=== PATIENT | female | born 1985 | race Caucasian/White ===

== ENCOUNTER 2021-04-09 10:43 | Emergency (ER) | payer OTHER ==
[2021-04-09] MEDS ORDERED: Zofran 4 MG/2 ML VIAL IV ONE (10:57)
[2021-04-09] MEDS ORDERED: TORAdol 30 mg Injection IV ONE (10:57)
[2021-04-09] MEDS ORDERED: Hydromorphone 1 mg/ml Injection IV ONE (10:57)
[2021-04-09] MEDS ORDERED: Sodium Chloride 0.9% 1000 ML 1,000 ML IV STA (10:57)
[2021-04-09] MEDS ORDERED: Zofran 4 MG/2 ML VIAL ONE (11:02)
[2021-04-09] MEDS ORDERED: Hydromorphone 1 mg/ml Injection ONE (11:02)
[2021-04-09] MEDS ORDERED: TORAdol 30 mg Injection ONE (11:02)
[2021-04-09] MEDS ORDERED: Sodium Chloride 0.9% 1000 ML 1,000 ML ONE (11:03)
[2021-04-09 11:16] LABS: Absolute Neutrophil Ct (ANC) 1.04 (1.4-6.9); BASOPHIL % 0.9 % (0.0-0.4); Basophil (Absolute #) 0.02 (0-0.4); Eosinophil (Absolute #) 0.31 (0-0.5); Hematocrit 40.7 % (35-47); Hemoglobin 12.8 gm/dl (12.0-16.0); Lymphocyte (Absolute #) 0.82 (1.0-4.6); Lymphocytes % 36.9 % (24.0-44.0); Mean Cell Volume 96.2 fl (78-100); Mean Corpuscular Hemoglobin 30.3 pg (26-32); Mean Corpuscular Hgb Concent. 31.4 g/dl (32-36); Mean Platelet Volume 9.7 fl (7.5-11.0); Monocyte (Absolute #) 0.03 (0.0-1.3); Monocytes % 1.4 % (0.0-12.0); Neutrophil % 46.8 % (36.0-66.0); Platelet Count 180 K/mm3 (150-450); Red Blood Count 4.23 M/mm3 (4.1-5.4); Red Cell Distribution Width 13.1 % (11.5-14.0); White Blood Count 2.2 K/mm3 (4.0-10.5)
[2021-04-09 11:17] LABS: ALBUMIN 4.4 g/dL (3.5-5.0); ALKALINE PHOSPHATASE 49 U/L (38-126); AMYLASE 79 U/L (30-110); ANION GAP 12.5 MEQ/L (5-15); BLOOD UREA NITROGEN 10 mg/dL (7-17); CHLORIDE 105 mmol/L (98-107); Calcium 9.2 mg/dL (8.4-10.2); Carbon Dioxide 25 mmol/L (22-30); Creatinine 1 0.72 mg/dL (0.52-1.04); EST GLOMERULAR FILTRATION RATE > 60.0 ML/MIN; Glucose 123 mg/dL (74-106); LIPASE 61 U/L (23-300); Potassium 4.5 mmol/L (3.5-5.1); SGOT/AST 22 U/L (14-36); SGPT/ALT 14 U/L (0-35); SODIUM 137 mmol/L (137-145); Total Protein 7.3 g/dL (6.3-8.2)
--- NOTE | 2021-04-09 11:33 | ERPHSYRPT ---
- History of Present Illness Time Seen by Provider: 04/09/21 10:55 Historian: patient, family Exam Limitations: no limitations Patient Subjective Stated Complaint: PT states "My left abdomen hurts so bad. It woke me up." Triage Nursing Assessment: Pt presented alert and oriented X 3, skin pwd pt unable to sit still. Pt moaning. Pt holding her left lower abdomen. Physician History: Patient is a 35-year-old female who presents with the complaint of left flank and left lower quadrant pain. The pain awoke her from sleep this morning and has gotten progressively worse. She has no history of renal stones denies any fever chills sweats etc. she does report nausea and dry heaving in the ER. Timing/Duration: today Activities at Onset: sleep Quality: stabbing, throbbing Abdominal Pain Onset Location: flank Pain Radiation: LLQ Severity of Pain-Max: severe Severity of Pain-Current: severe Modifying Factors: Improves With: vomiting Associated Symptoms: nausea, vomiting Previous symptoms: no prior history Allergies/Adverse Reactions: No Known Drug Allergies Allergy (Verified 01/30/21 07:42) Hx Tetanus, Diphtheria Vaccination/Date Given: Yes Hx Influenza Vaccination/Date Given: No Hx Pneumococcal Vaccination/Date Given: No Immunizations Up to Date: Yes Travel Risk - International Travel Have you traveled outside of the country in past 3 weeks: No - Coronavirus Screening Are you exhibiting any of the following symptoms?: No Close contact with a COVID-19 positive Pt in past 14-21 Days: No - Vaccine Status Have you recieved a Covid-19 vaccination: No - Review of Systems Constitutional: No Fever, No Chills Eyes: No Symptoms Ears, Nose, & Throat: No Symptoms Respiratory: No Cough, No Dyspnea Cardiac: No Chest Pain, No Edema, No Syncope Abdominal/Gastrointestinal: Abdominal Pain, Nausea, Vomiting, No Diarrhea Genitourinary Symptoms: Flank Pain (Left), No Dysuria Musculoskeletal: No Back Pain, No Neck Pain Skin: No Rash Neurological: No Dizziness, No Focal Weakness, No Sensory Changes Psychological: No Symptoms Endocrine: No Symptoms All Other Systems: Reviewed and Negative - Past Medical History Pertinent Past Medical History: Yes Neurological History: No Pertinent History ENT History: No Pertinent History Cardiac History: No Pertinent History Respiratory History: No Pertinent History Endocrine Medical History: No Pertinent History Musculoskeletal History: No Pertinent History GI Medical History: No Pertinent History History: No Pertinent History Psycho-Social History: No Pertinent History Female Reproductive Disorders: No Pertinent History - Past Surgical History Past Surgical History: Yes Neuro Surgical History: No Pertinent History Cardiac: No Pertinent History Respiratory: No Pertinent History Gastrointestinal: No Pertinent History Genitourinary: No Pertinent History Musculoskeletal: No Pertinent History Female Surgical History: Other Other Surgical History: tubal - Social History Smoking Status: Current every day smoker How long have you smoked: 18 years Exposure to second hand smoke: Yes Drug Use: none Patient Lives Alone: No - Female History Hx Last Menstrual Period: tubal Hx Now: No - Nursing Vital Signs Nursing Vital Signs: Initial Vital Signs Temperature 97.8 F 04/09/21 10:51 Pulse Rate 69 04/09/21 10:51 Respiratory Rate 22 04/09/21 10:51 Blood Pressure 76/55 04/09/21 10:51 O2 Sat by Pulse Oximetry 99 04/09/21 10:51 Pain Scale Pain Intensity 7 - Physical Exam General Appearance: severe distress, alert Eye Exam: PERRL/EOMI, eyes nml inspection Ears, Nose, Throat Exam: normal ENT inspection, pharynx normal, moist mucous membranes Neck Exam: normal inspection, non-tender, supple, full range of motion Respiratory Exam: normal breath sounds, lungs clear, No respiratory distress Cardiovascular Exam: regular rate/rhythm, normal heart sounds Gastrointestinal/Abdomen Exam: soft, No tenderness, No mass Back Exam: normal inspection, normal range of motion, No CVA tenderness, No vertebral tenderness Extremity Exam: normal inspection, normal range of motion, pelvis stable Neurologic Exam: alert, oriented x 3, cooperative, normal mood/affect, nml cerebellar function, sensation nml, No motor deficits Skin Exam: normal color, warm, dry SpO2: 99 - Course Nursing assessment & vital signs reviewed: Yes - CT Exams Abdomen/Pelvis CT Interpretation: Tele-radiologist Report, Other (CT scan shows a 1 mm left ureteral stone at the UPJ) Ordered Tests: Active Orders 24 hr Category Date Time Status IV Insertion STAT Care 04/09/21 10:57 Active ABDOMEN AND PELVIS W/0 CONTRAS [CT] Stat Exams 04/09/21 10:58 Completed AMYLASE Stat Lab 04/09/21 11:00 Completed CBC W DIFF Stat Lab 04/09/21 11:00 Completed CMP Stat Lab 04/09/21 11:00 Completed LIPASE Stat Lab 04/09/21 11:00 Completed Lactic Acid Stat Lab 04/09/21 10:57 Completed UA W/RFX UR CULTURE Stat Lab 04/09/21 10:58 Ordered Medication Summary Discontinued Medications Generic Name Dose Route Start Last Admin Trade Name Awilda PRN Reason Stop Dose Admin Fentanyl Citrate 75 mcg 04/09/21 11:49 Sublimaze 100 Mcg/2 Ml IV 04/09/21 11:50 STAT ONE Fentanyl Citrate Confirm 04/09/21 11:55 Sublimaze 100 Mcg/2 Ml Administered 04/09/21 11:56 Dose 100 mcg .ROUTE .STK-MED ONE Hydromorphone HCl 1 mg 04/09/21 10:57 04/09/21 11:08 Hydromorphone 1 Mg/Ml Injection IV 04/09/21 10:58 1 mg STAT ONE Administration Hydromorphone HCl Confirm 04/09/21 11:02 Hydromorphone 1 Mg/Ml Injection Administered 04/09/21 11:03 Dose 1 mg .ROUTE .STK-MED ONE Sodium Chloride 1,000 mls @ 999 mls/hr 04/09/21 10:57 04/09/21 11:09 Sodium Chloride 0.9% 1000 Ml IV 04/09/21 11:57 999 mls/hr .Q1H1M STA Administration Sodium Chloride Confirm 04/09/21 11:03 Sodium Chloride 0.9% 1000 Ml Administered 04/09/21 11:04 Dose 1,000 mls @ ud .ROUTE .STK-MED ONE Ketorolac Tromethamine 30 mg 04/09/21 10:57 04/09/21 11:08 Toradol 30 Mg Injection IV 04/09/21 10:58 30 mg STAT ONE Administration Ketorolac Tromethamine Confirm 04/09/21 11:02 Toradol 30 Mg Injection Administered 04/09/21 11:03 Dose 30 mg .ROUTE .STK-MED ONE Ondansetron HCl 4 mg 04/09/21 10:57 04/09/21 11:09 Zofran 4 Mg/2 Ml Vial IV 04/09/21 10:58 4 mg STAT ONE Administration Ondansetron HCl Confirm 04/09/21 11:02 Zofran 4 Mg/2 Ml Vial Administered 04/09/21 11:03 Dose 4 mg .ROUTE .STK-MED ONE Lab/Rad Data: Laboratory Result Diagrams 04/09/21 11:00 04/09/21 11:00 Laboratory Results 04/09/21 04/09/21 04/09/21 Range/Units 11:00 11:00 10:57 WBC 2.2 L (4.0-10.5) K/mm3 RBC 4.23 (4.1-5.4) M/mm3 Hgb 12.8 (12.0-16.0) gm/dl Hct 40.7 (35-47) % MCV 96.2 (78-100) fl MCH 30.3 (26-32) pg MCHC 31.4 L (32-36) g/dl RDW 13.1 (11.5-14.0) % Plt Count 180 (150-450) K/mm3 MPV 9.7 (7.5-11.0) fl Gran % 46.8 (36.0-66.0) % Eos # (Auto) 0.31 (0-0.5) Absolute Lymphs (auto) 0.82 L (1.0-4.6) Absolute Monos (auto) 0.03 (0.0-1.3) Lymphocytes % 36.9 (24.0-44.0) % Monocytes % 1.4 (0.0-12.0) % Eosinophils % 14.0 H (0.00-5.0) % Basophils % 0.9 (0.0-0.4) % Absolute Granulocytes 1.04 L (1.4-6.9) Basophils # 0.02 (0-0.4) Sodium 137 (137-145) mmol/L Potassium 4.5 (3.5-5.1) mmol/L Chloride 105 (98-107) mmol/L Carbon Dioxide 25 (22-30) mmol/L Anion Gap 12.5 (5-15) MEQ/L BUN 10 (7-17) mg/dL Creatinine 0.72 (0.52-1.04) mg/dL Estimated GFR > 60.0 ML/MIN Glucose 123 H (74-106) mg/dL Lactic Acid 1.6 (0.4-2.0) Calcium 9.2 (8.4-10.2) mg/dL Total Bilirubin 0.30 (0.2-1.3) mg/dL AST 22 (14-36) U/L ALT 14 (0-35) U/L Alkaline Phosphatase 49 (38-126) U/L Serum Total Protein 7.3 (6.3-8.2) g/dL Albumin 4.4 (3.5-5.0) g/dL Amylase 79 (30-110) U/L Lipase 61 (23-300) U/L - Progress Progress: improved, pain not gone completely - Departure Departure Disposition: Home Clinical Impression: Left ureteral stone Condition: Stable Critical Care Time: No Referrals: JAKUB SINGH [Primary Care Provider] - Instructions: Kidney Stones (DC) Prescriptions: Oxycodone HCl/Acetaminophen [Percocet 5-325 mg Tablet] 1 each PO Q6H PRN PRN 3 Days #12 tablet MDD 4 PRN Reason: Pain Tamsulosin HCl 0.4 mg [Flomax 0.4 MG] 0.4 mg PO DAILY 5 Days #5 cap Ondansetron HCl [Zofran] 4 mg PO TID PRN #10 tablet PRN Reason: Nausea/Vomiting
--- NOTE | 2021-04-09 11:37 | XRAY ---
Indication: Left flank pain. Multiple contiguous images obtained through the abdomen and pelvis without contrast. Comparison: None Lung bases are clear. Heart is not enlarged. Noncontrasted stomach and bowel loops appear nonobstructed. There is moderate diffuse scattered colonic fecal debris throughout. No free fluid/air. Left kidney demonstrates a 1 cm UPJ calculus with mild hydronephrosis. 2 additional nonobstructing left renal punctate calculi. Incidental tubal ligation clips. Remaining liver, gallbladder, pancreas, spleen, adrenal glands, right kidney, right ureter, urinary bladder, uterus, and aorta are unremarkable for noncontrast exam. Osseous structures intact. Impression: 1. 1 cm left UPJ calculus producing partial obstructive uropathy. Additional left renal micro-calculi. 2. Incidental moderate diffuse fecal stasis.
[2021-04-09] MEDS ORDERED: SUBLIMAZE 100 MCG/2 ML IV ONE (11:49)
[2021-04-09] MEDS ORDERED: SUBLIMAZE 100 MCG/2 ML ONE (11:55)
[2021-04-09 13:13] LABS: Appearance CLOUDY (CLEAR); Bacteria RARE /HPF (NEGATIVE); Bilirubin NEGATIVE (NEGATIVE); Blood LARGE Ery/ul (0-5); Epithelial Cells RARE /HPF (FEW); Glucose NEGATIVE (NEGATIVE); Ketones NEGATIVE (NEGATIVE); Leukocyte Esterase MODERATE (NEGATIVE); Mucus SLIGHT /HPF (NEGATIVE); Nitrite POSITIVE (NEGATIVE); Protein,Urine Dip 30 (Negative); RBC 51-100 /HPF (0-2); Specific Gravity 1.017 (1.005-1.025); Urobilinogen NEGATIVE mg/dL (0-1); WBC 26-50 /HPF (0-5)
[2021-04-09 13:14] VITALS: BP 107/59; PULSE 70; O2SAT 98
== END 2021-04-09 13:15 | disposition home or self-care (01) ==
LOC: ED 10:43
DX: N20.1 Calculus of ureter (principal)
CPT/HCPCS: 36000; 36415; 74176; 80053; 81001; 82150; 83605; 83690; 85025; 87077; 87086; 87186; 96360; 96374; 96375; 99284; J1170; J1885; J2405; J3010

== ENCOUNTER 2024-11-20 15:55 | Emergency (ER) | payer OTHER ==
[2024-11-20 16:11] VITALS: TEMP 97.1; O2SAT 100
--- NOTE | 2024-11-20 16:38 | ERPHSYRPT ---
- History of Present Illness Time Seen by Provider: 11/20/24 16:01 Historian: patient, family Exam Limitations: no limitations Patient Subjective Stated Complaint: pt c/o of medial sternum chest pain that began appox 30-45 minutes ago and spouse reports pt turning orange Triage Nursing Assessment: Pt brought to the ER by her , bradycardic, rates medial chest pain as 7/10, pulses weak, skin orange/yellow, warm and dry, pt reports skin turning this color before when she had a blood infection, hard to catch a breath, reports being on nitrofurantoin for a UTI at this time, weak and lethargic Physician History: 39 years old female with history of anxiety/depression/vaping presented in the ER with sudden onset epigastric/lower substernal chest pain sudden onset almost an hour ago after eating some Cheetos. Patient reports moderate to severe sharp pain, nonradiating, mild nausea but no vomiting. Denies any palpitations or shortness of breath associated with it. No fever or chills reported. No history of coronary artery disease, pancreatitis or biliary colic. Allergies/Adverse Reactions: No Known Drug Allergies Allergy (Verified 11/20/24 16:14) Home Medications: Fluoxetine HCl [Prozac] 40 mg PO DAILY 11/20/24 [History] Methenamine Hippurate 1 gm PO DAILY 11/20/24 [History] Nitrofurantoin Macrocrystal [Nitrofurantoin] 50 mg PO DAILY 11/20/24 [History] buPROPion HCL [Bupropion Xl] 300 mg PO DAILY 11/20/24 [History] risperiDONE [Risperdal] 0.5 mg PO BID 11/20/24 [History] Hx Tetanus, Diphtheria Vaccination/Date Given: Yes Hx Influenza Vaccination/Date Given: No Hx Pneumococcal Vaccination/Date Given: No Travel Risk - International Travel Have you traveled outside of the country in past 3 weeks: No - Emerging Infectious Disease Are you exhibiting symptoms associated with any current EIDs: No - Review of Systems Constitutional: No Symptoms Ears, Nose, & Throat: No Symptoms Respiratory: No Symptoms Cardiac: Chest Pain Abdominal/Gastrointestinal: Abdominal Pain, Nausea Genitourinary Symptoms: No Symptoms Musculoskeletal: No Symptoms Skin: No Symptoms Neurological: No Symptoms Endocrine: No Symptoms Hematologic/Lymphatic: No Symptoms Immunological/Allergic: No Symptoms - Past Medical History Pertinent Past Medical History: Yes Neurological History: No Pertinent History ENT History: No Pertinent History Cardiac History: No Pertinent History Respiratory History: No Pertinent History Endocrine Medical History: No Pertinent History Musculoskeletal History: No Pertinent History GI Medical History: No Pertinent History History: No Pertinent History Psycho-Social History: No Pertinent History Female Reproductive Disorders: No Pertinent History - Past Surgical History Past Surgical History: Yes Neuro Surgical History: No Pertinent History Cardiac: No Pertinent History Respiratory: No Pertinent History Gastrointestinal: No Pertinent History Genitourinary: No Pertinent History Musculoskeletal: No Pertinent History Female Surgical History: Other Other Surgical History: tubal - Female History Hx Now: No (ablation) - Social History Smoking Status: Current every day smoker How long have you smoked: vape Exposure to second hand smoke: Yes Drug Use: marijuana - Social Determinants of Health Will the patient participate in the screening: Yes Do you worry about a steady place to live?: No Do you have any problems with any of the following?: No known problems In the past 12 months,have you had to go without utilities?: No Transportation Issues: No Has anyone in your support network made you feel unsafe?: No Have you or anyone in your house had to go w/o enough food: No - Nursing Vital Signs Nursing Vital Signs: Initial Vital Signs Temperature 97.1 F 11/20/24 16:00 Pulse Rate 47 L 11/20/24 16:00 Respiratory Rate 19 11/20/24 16:00 Blood Pressure 111/49 11/20/24 16:00 O2 Sat by Pulse Oximetry 100 11/20/24 16:00 Pain Scale Pain Intensity 3 - Physical Exam General Appearance: no apparent distress, alert Eye Exam: PERRL/EOMI Ears, Nose, Throat Exam: normal ENT inspection Neck Exam: normal inspection, non-tender, supple, full range of motion Respiratory Exam: normal breath sounds, lungs clear Cardiovascular Exam: regular rate/rhythm, normal heart sounds Gastrointestinal/Abdomen Exam: soft, normal bowel sounds, tenderness (Epigastrium) Back Exam: normal inspection, normal range of motion Extremity Exam: normal inspection, normal range of motion Neurologic Exam: alert, oriented x 3, cooperative Skin Exam: normal color SpO2 Interpretation: normal SpO2: 100 O2 Delivery: Room Air - Course EKG Interpreted by Me: RATE (62), Sinus Rhythm, NORMAL AXIS, NORMAL INTERVALS, NORMAL QRS Ordered Tests: Active Orders 24 hr Category Date Time Status EKG-ER Only STAT Care 11/20/24 16:32 Active IV Insertion STAT Care 11/20/24 16:32 Active NPO (ED) STAT Care 11/20/24 16:32 Active CHEST 1 VIEW (PORTABLE) Stat Exams 11/20/24 16:32 Taken CBC W DIFF Stat Lab 11/20/24 16:40 Completed CMP Stat Lab 11/20/24 16:40 Completed CULTURE,URINE Stat Lab 11/20/24 18:27 Received HCG QUALITATIVE, SERUM Stat Lab 11/20/24 16:40 Completed LIPASE Stat Lab 11/20/24 16:40 Completed TROPONIN Q4H Lab 11/20/24 16:40 Completed TROPONIN Q4H Lab 11/20/24 19:00 Completed TROPONIN Q4H Lab 11/21/24 00:45 Ordered UA W/RFX UR CULTURE Stat Lab 11/20/24 18:27 Completed Medication Summary Discontinued Medications Generic Name Dose Route Start Last Admin Trade Name Freq PRN Reason Stop Dose Admin Cephalexin HCl 500 mg 11/20/24 19:43 11/20/24 19:47 Cephalexin Mh500 Mg Capsule PO 11/20/24 19:44 500 mg STAT ONE Administration Cephalexin HCl Confirm 11/20/24 19:46 Cephalexin Mh500 Mg Capsule Administered 11/20/24 19:47 Dose 500 mg .ROUTE .STK-MED ONE Fentanyl Citrate 50 mcg 11/20/24 16:32 11/20/24 16:55 Fentanyl Citrate 100 Mcg/2 Ml* Vial IV 11/20/24 16:33 50 mcg STAT ONE Administration Fentanyl Citrate Confirm 11/20/24 16:51 Fentanyl Citrate 100 Mcg/2 Ml* Vial Administered 11/20/24 16:52 Dose 100 mcg .ROUTE .STK-MED ONE Sodium Chloride 1,000 mls @ 999 mls/hr 11/20/24 16:32 11/20/24 18:41 Sodium Chloride 0.9% 1000 Ml IV 11/20/24 17:32 Infused .Q1H1M STA Infusion Sodium Chloride Confirm 11/20/24 16:51 Sodium Chloride 0.9% 1000 Ml Administered 11/20/24 16:52 Dose 1,000 mls @ ud .ROUTE .STK-MED ONE Ondansetron HCl 4 mg 11/20/24 16:32 11/20/24 16:55 Ondansetron Hcl 4 Mg/2 Ml Vial IV 11/20/24 16:33 4 mg STAT ONE Administration Ondansetron HCl Confirm 11/20/24 16:50 Ondansetron Hcl 4 Mg/2 Ml Vial Administered 11/20/24 16:51 Dose 4 mg .ROUTE .STK-MED ONE Pantoprazole Sodium 40 mg 11/20/24 16:32 11/20/24 16:54 Pantoprazole 40 Mg Vial IV 11/20/24 16:33 40 mg STAT ONE Administration Pantoprazole Sodium Confirm 11/20/24 16:50 Pantoprazole 40 Mg Vial Administered 11/20/24 16:51 Dose 40 mg IV .STK-MED ONE Lab/Rad Data: Laboratory Result Diagrams 11/20/24 16:40 11/20/24 16:40 Laboratory Results 11/20/24 11/20/24 11/20/24 Range/Units 19:00 18:27 16:40 WBC (3.98-10.04) x10^3/uL RBC (3.93-5.22) x10^6/uL Hgb (11.2-15.7) g/dL Hct (34.1-44.9) % MCV (79.4-94.8) fL MCH (25.6-32.2) pg MCHC (32.2-35.5) g/dL RDW (11.7-14.4) % Plt Count (182-369) x10^3/uL MPV (9.4-12.3) fL Gran % (34.0-71.1) % Immature Gran % (Auto) (0.001-0.429) % Nucleat RBC Rel Count (0.00-0.2) % Eos # (Auto) (0.04-0.36) x10^3/uL Immature Gran # (Auto) (0.001-0.031) x10^3u/L Absolute Lymphs (auto) (1.18-3.74) x10^3/uL Absolute Monos (auto) (0.24-0.86) x10^3/uL Absolute Nucleated RBC (0.00-0.012) x10^3u/L Lymphocytes % (19.3-51.7) % Monocytes % (4.7-12.5) % Eosinophils % (0.7-5.8) % Basophils % (0.1-1.2) % Absolute Granulocytes (1.56-6.13) x10^3/uL Basophils # (0.01-0.08) x10^3/uL Sodium (135-145) mmol/L Potassium (3.5-5.1) mmol/L Chloride (98-107) mmol/L Carbon Dioxide (22-30) mmol/L Anion Gap (5-15) MEQ/L BUN (7-17) mg/dL Creatinine (0.52-1.04) mg/dL Estimated GFR ML/MIN Glucose (74-106) mg/dL Calcium (8.4-10.2) mg/dL Total Bilirubin (0.2-1.3) mg/dL AST (14-36) U/L ALT (0-35) U/L Alkaline Phosphatase (38-126) U/L Troponin I < 0.012 (0.000-0.033) ng/mL Serum Total Protein (6.3-8.2) g/dL Albumin (3.5-5.0) g/dL Lipase (23-300) U/L Serum HCG, Qual NEGATIVE (NEGATIVE) Urine Color Yellow (Yellow) Urine Appearance Cloudy A (Clear) Urine pH 6.5 (4.6-8.0) Ur Specific D[place]ott 1.015 (1.005-1.030) Urine Protein Negative (Negative) Urine Glucose (UA) Negative (Negative) mg/dL Urine Ketones Negative (Negative) Urine Blood Small A (Negative) Urine Nitrite Positive A (Negative) Urine Bilirubin Negative (Negative) Urine Urobilinogen 0.2 (0.2) mg/dL Ur Leukocyte Esterase Small A (Negative) U Hyaline Cast (Auto) 6-10 A (0-2) /LPF Urine Microscopic RBC 3-5 (0-5) /HPF Urine Microscopic WBC 6-10 A (0-5) /HPF Ur Epithelial Cells Moderate A (None Seen) /HPF Urine Bacteria Many A (None Seen) /HPF Urine Culture Reflexed YES (NO) 11/20/24 11/20/24 11/20/24 Range/Units 16:40 16:40 16:40 WBC 6.5 (3.98-10.04) x10^3/uL RBC 3.78 L (3.93-5.22) x10^6/uL Hgb 11.4 (11.2-15.7) g/dL Hct 37.7 (34.1-44.9) % MCV 99.7 H (79.4-94.8) fL MCH 30.2 (25.6-32.2) pg MCHC 30.2 L (32.2-35.5) g/dL RDW 12.5 (11.7-14.4) % Plt Count 262 (182-369) x10^3/uL MPV 9.8 (9.4-12.3) fL Gran % 49.0 (34.0-71.1) % Immature Gran % (Auto) 0.3 (0.001-0.429) % Nucleat RBC Rel Count 0.0 (0.00-0.2) % Eos # (Auto) 0.30 (0.04-0.36) x10^3/uL Immature Gran # (Auto) 0.02 (0.001-0.031) x10^3u/L Absolute Lymphs (auto) 2.50 (1.18-3.74) x10^3/uL Absolute Monos (auto) 0.44 (0.24-0.86) x10^3/uL Absolute Nucleated RBC 0.00 (0.00-0.012) x10^3u/L Lymphocytes % 38.4 (19.3-51.7) % Monocytes % 6.8 (4.7-12.5) % Eosinophils % 4.6 (0.7-5.8) % Basophils % 0.9 (0.1-1.2) % Absolute Granulocytes 3.19 (1.56-6.13) x10^3/uL Basophils # 0.06 (0.01-0.08) x10^3/uL Sodium 137 (135-145) mmol/L Potassium 3.9 (3.5-5.1) mmol/L Chloride 104 (98-107) mmol/L Carbon Dioxide 22 (22-30) mmol/L Anion Gap 15.1 H (5-15) MEQ/L BUN 13 (7-17) mg/dL Creatinine 0.58 (0.52-1.04) mg/dL Estimated GFR 118.7 ML/MIN Glucose 82 (74-106) mg/dL Calcium 9.9 (8.4-10.2) mg/dL Total Bilirubin 0.60 (0.2-1.3) mg/dL AST 35 (14-36) U/L ALT 21 (0-35) U/L Alkaline Phosphatase 53 (38-126) U/L Troponin I < 0.012 (0.000-0.033) ng/mL Serum Total Protein 7.8 (6.3-8.2) g/dL Albumin 4.7 (3.5-5.0) g/dL Lipase 47 (23-300) U/L Serum HCG, Qual (NEGATIVE) Urine Color (Yellow) Urine Appearance (Clear) Urine pH (4.6-8.0) Ur Specific D[place]ott (1.005-1.030) Urine Protein (Negative) Urine Glucose (UA) (Negative) mg/dL Urine Ketones (Negative) Urine Blood (Negative) Urine Nitrite (Negative) Urine Bilirubin (Negative) Urine Urobilinogen (0.2) mg/dL Ur Leukocyte Esterase (Negative) U Hyaline Cast (Auto) (0-2) /LPF Urine Microscopic RBC (0-5) /HPF Urine Microscopic WBC (0-5) /HPF Ur Epithelial Cells (None Seen) /HPF Urine Bacteria (None Seen) /HPF Urine Culture Reflexed (NO) - Progress Progress: improved Progress Note: 11/20/24 19:49 39 years old female is evaluated in the ER for epigastric//substernal chest pain. EKG showed sinus rhythm with no ST elevation. She is given Protonix along with symptomatic treatment, on reevaluation she is feeling better with no tenderness in the epigastric area. Has negative troponins x 2., Chest x-ray negative for any acute cardiopulmonary findings reviewed by me, official report is pending. Patient has normal white count, normal lipase and chemistries. PERC negative. Low heart score, do not think needs further workup as I believe patient's symptoms are more of a GERD related and will give a prescription of Protonix. Recommended outpatient follow-up with primary care and cardiology. Does have UTI and started on Keflex Do not think patient needs further workup and is stable for discharge. Counseled pt/family regarding: lab results, diagnosis, need for follow-up, rad results, smoking cessation Medical Desision Making - Independent Historian Additional History obtained from: Spouse - Diagnostic Testing Diagnostic test were ordered, analyzed, and reviewed by me: Yes Radiological Interpretation: Interpreted by me, Reviewed by me - Risk of complications The pt has a mod risk of morbidity or mortality based on: Need for prescription drug management - Departure Departure Disposition: Home Clinical Impression: Atypical chest pain, UTI (urinary tract infection) Condition: Stable Critical Care Time: No Referrals: JAKUB SINGH MD [Primary Care Provider] - Follow up with PCP 1 day SANGEETHA HORTON [CONSULTING PHYSICIAN] - Follow up/PCP as directed (Call for appointment) Instructions: Chest Pain (DC) Additional Instructions: Take Tylenol as needed. Follow-up with primary care and cardiology for reevaluation. Return to ER for any worsening. Prescriptions: Cephalexin Mh 500 mg [Keflex 500 mg] 500 mg PO TID #21 cap PANTOPRAZOLE 40 mg Tablet [Protonix 40MG Tablet] 40 mg PO QAM #30 tab
[2024-11-20 16:44] LABS: Absolute Neutrophil Ct (ANC) 3.19 x10^3/uL (1.56-6.13); BASOPHIL % 0.9 % (0.1-1.2); Basophil (Absolute #) 0.06 x10^3/uL (0.01-0.08); Eosinophil % 4.6 % (0.7-5.8); Hematocrit 37.7 % (34.1-44.9); Hemoglobin 11.4 g/dL (11.2-15.7); IMMATURE GRAN # 0.02 x10^3u/L (0.001-0.031); IMMATURE GRAN % 0.3 % (0.001-0.429); Lymphocytes % 38.4 % (19.3-51.7); Mean Cell Volume 99.7 fL (79.4-94.8); Mean Corpuscular Hemoglobin 30.2 pg (25.6-32.2); Mean Corpuscular Hgb Concent. 30.2 g/dL (32.2-35.5); Mean Platelet Volume 9.8 fL (9.4-12.3); Monocyte (Absolute #) 0.44 x10^3/uL (0.24-0.86); Monocytes % 6.8 % (4.7-12.5); Platelet Count 262 x10^3/uL (182-369); Red Blood Count 3.78 x10^6/uL (3.93-5.22); Red Cell Distribution Width 12.5 % (11.7-14.4); White Blood Count 6.5 x10^3/uL (3.98-10.04)
[2024-11-20] MEDS ORDERED: PROTONIX 40 MG IV IV ONE (16:50)
[2024-11-20] MEDS ORDERED: Zofran 4 MG/2 ML VIAL ONE (16:50)
[2024-11-20] MEDS ORDERED: SUBLIMAZE 100 MCG/2 ML ONE (16:51)
[2024-11-20] MEDS ORDERED: Sodium Chloride 0.9% 1000 ML 1,000 ML ONE (16:51)
[2024-11-20] MEDS: PROTONIX 40 MG IV IV ONE (16:54)
[2024-11-20] MEDS: Sodium Chloride 0.9% 1000 ML 1,000 ML IV STA (16:55)
[2024-11-20] MEDS: Zofran 4 MG/2 ML VIAL IV ONE (16:55)
[2024-11-20] MEDS: SUBLIMAZE 100 MCG/2 ML IV ONE (16:55)
[2024-11-20 16:58] LABS: HCG SERUM TEST NEGATIVE (NEGATIVE)
[2024-11-20 17:00] LABS: ALBUMIN 4.7 g/dL (3.5-5.0); ANION GAP 15.1 MEQ/L (5-15); BILIRUBIN,TOTAL 0.6 mg/dL (0.2-1.3); Calcium 9.9 mg/dL (8.4-10.2); Creatinine 1 0.58 mg/dL (0.52-1.04); EST GLOMERULAR FILTRATION RATE 118.7 ML/MIN; Potassium 3.9 mmol/L (3.5-5.1); Total Protein 7.8 g/dL (6.3-8.2)
[2024-11-20 19:31] LABS: Appearance Cloudy (Clear); Bacteria Many /HPF (None Seen); Bilirubin Negative (Negative); Blood Small (Negative); Epithelial Cells Moderate /HPF (None Seen); Glucose, Urine Negative (Negative); Ketones Negative (Negative); Leukocyte Esterase Small (Negative); Nitrite Positive (Negative); Ph 6.5 (4.6-8.0); Protein,Urine Dip Negative (Negative); Specific Gravity 1.015 (1.005-1.030); Urobilinogen 0.2 mg/dL (0.2)
[2024-11-20] MEDS ORDERED: KEFLEX 500 MG ONE (19:46)
[2024-11-20] MEDS: KEFLEX 500 MG PO ONE (19:47)
[2024-11-20 19:48] VITALS: BP 93/52; PULSE 46; RESP 21
--- NOTE | 2024-11-20 23:41 | XRAY ---
Indication: Epigastric pain. Comparison: None Portable chest demonstrates normal heart and lungs. Bony thorax intact. No acute findings.
== END 2024-11-20 19:58 | disposition home or self-care (01) ==
LOC: ED 15:55
DX: R07.89 Other chest pain (principal); N39.0 Urinary tract infection, site not specified; R10.13 Epigastric pain; Z79.899 Other long term (current) drug therapy; Z72.0 Tobacco use
CPT/HCPCS: 36415; 71045; 80053; 81001; 83690; 84484; 84703; 85025; 87077; 87086; 87186; 93005; 96361; 96374; 96375; 99284; 99285; J2405; J3010; A9270-GY